=== PATIENT | male | born 1990 | race Caucasian/White ===

== ENCOUNTER 2017-06-26 16:44 | Emergency (ER) | payer OTHER ==
[~2017-06-26] VITALS: Ht 190.5 cm; Wt 226.8 kg
[2017-06-26 18:56] LABS: ABSOLUTE BASOPHIL COUNT 0 /CUMM (0.0-0.2); ABSOLUTE EOSINOPHIL COUNT 0.4 /CUMM (0.0-0.7); ABSOLUTE GRANULOCYTE CT 8.2 /CUMM (1.4-6.5); ABSOLUTE LYMPH COUNT 2.1 /CUMM (1.2-3.4); ABSOLUTE MONOCYTE COUNT 0.9 /CUMM (0.10-0.60); BASOPHIL % 0.4 % (0.0-2.0); EOSINOPHIL % 3.1 % (0-5); GRANULOCYTE % 70.8 % (42.2-75.2); HEMATOCRIT 44.6 % (42-52); MEAN CORPUSCULAR HGB 26.9 PG (27.0-31.0); MEAN CORPUSCULAR HGB CONC 33.4 G/DL (33.0-37.0); MEAN CORPUSCULAR VOLUME 80.5 FL (80.0-94.0); MEAN PLATELET VOLUME 7.7 FL (7.4-10.4); PLATELET COUNT 315 /CUMM (130-400); RBC DISTRIBUTION WIDTH 13.4 % (11.5-14.5); RED BLOOD CELL CT 5.53 /CUMM (4.70-6.10); WHITE BLOOD CELL COUNT 11.6 /CUMM (4.8-10.8)
--- NOTE | 2017-06-26 19:53 | ED GENERAL ADULT ---
History of Present Illness General Chief Complaint: Chest Pain Stated Complaint: PT IS HAVING CHEST PAIN Source: patient Exam Limitations: no limitations Vital Signs & Intake/Output Vital Signs & Intake/Output Vital Signs Date Time Temp Pulse Resp B/P B/P Pulse O2 O2 Flow FiO2 Mean Ox Delivery Rate 06/267 98.0 103 19 150/94 96 Room Air 06/26 2033 103 06/26 1902 98.2 112 18 157/93 98 Room Air 06/26 1656 97.1 112 18 175/95 98 Room Air ED Intake and Output 06/27 0000 06/26 1200 Intake Total Output Total Balance Patient 500 lb Weight Allergies Coded Allergies: NO KNOWN ALLERGIES (09/27/12) Triage Note: 26 YEAR OLD MALE STATES THAT HE HAS BEEN HAVING AN INTERMITTANT UPPER CHEST PRESSURE X 2 DAYS, PT HAS HISTORY OF HTN AND GERD. STATES THAT THIS AFTERNOON PRESSURE HAS BEEN CONSTANT, NON RADIATING. DENIES SOB. Triage Nurses Notes Reviewed? yes Onset: Abrupt Duration: hour(s): Timing: recent history HPI: 06/26/17 8:32 pm 26-year-old male presents to the emergency department with chest heaviness. The patient states that he had an episode of chest heaviness earlier in the day. He does have a history of gastroesophageal reflux. He says that this time the discomfort was different. He is concerned because he recognizes that he has a history of high blood pressure and is also significantly obese. Currently he denies any pain but said that he has a dull ache. His initial EKG is unchanged. Labs have been sent. Past History Travel History Traveled to [place] past 21 day No Medical History Any Pertinent Medical History? see below for history Cardiovascular: hypertension Gastrointestinal: GERD Hepatic: NONE Renal: NONE Musculoskeletal: NONE Psychiatric: NONE Endocrine: NONE Blood Disorders: NONE ARCHITECTURE INTERNSHIP/Reproductive: NONE Surgical History Surgical History: non-contributory Psychosocial History What is your primary language Trinidadian Tobacco Use: Never used ETOH Use: denies use Illicit Drug Use: denies illicit drug use Family History Hx Contributory? No Review of Systems Review of Systems Constitutional: Denies: fever. EENTM: Denies: visual changes. Respiratory: Denies: short of breath. Cardiovascular: Reports: chest pain. GI: Denies: abdominal pain. Genitourinary: Reports: no symptoms. Musculoskeletal: Reports: no symptoms. Skin: Reports: no symptoms. Neurological/Psychological: Reports: no symptoms. Hematologic/Endocrine: Reports: no symptoms. Immunologic/Allergic: Reports: no symptoms. Physical Exam Physical Exam General Appearance: alert, awake, anxious, moderate distress Head: atraumatic, normal appearance Eyes: Bilateral: normal appearance, PERRL, EOMI. Ears, Nose, Throat: normal pharynx, normal ENT inspection Neck: normal inspection, supple Respiratory: normal breath sounds, chest non-tender, no respiratory distress Cardiovascular: regular rate/rhythm Peripheral Pulses: 4+ radial (R), 4+ radial (L) Gastrointestinal: soft, OBESE NONTENDER Back: normal range of motion, vertebral tenderness Extremities: normal inspection, normal range of motion, pedal edema Neurologic/Psych: no motor/sensory deficits, awake, alert, oriented x 3 Skin: intact, normal color, warm/dry Core Measures ACS in differential dx? No CVA/TIA Diagnosis: No Sepsis Present: No Sepsis Focused Exam Completed? No Progress Differential Diagnoses I considered the following diagnoses in my evaluation of the patient: [Acute coronary syndrome, hypertension, aortic dissection, costochondritis, gastroesophageal reflux, valvular heart disease] Plan of Care: Orders Procedure Date/time Status TROPONIN LEVEL 06/27 2007 Complete EKG 06/27 2007 Active THYROID STIMULATING HORMONE 06/27 1819 Complete TROPONIN LEVEL 06/27 1819 Complete FREE T4 06/27 1819 Complete D-DIMER 06/27 1819 Complete COMPREHENSIVE METABOLIC PANEL 06/26 182 Complete CBC WITHOUT DIFFERENTIAL 06/27 1819 Complete EKG 06/26 1645 Active Laboratory Tests 06/26/172027: Troponin I < 0.01 06/26/17 1843: Anion Gap 17 H, Estimated GFR > 60, BUN/Creatinine Ratio 16.7, Glucose 121 H, Calcium 9.7, Total Bilirubin 0.4, AST 32, ALT 62, Alkaline Phosphatase 39, Troponin I < 0.01, Total Protein 7.9, Albumin 4.5, Globulin 3.4, Albumin/ Globulin Ratio 1.3, TSH 1.790, Free T4 1.07, D-Dimer High Sensitivty < 200, CBC w Diff NO MAN DIFF REQ, RBC 5.53, MCV 80.5, MCH 26.9 L, MCHC 33.4, RDW 13.4, MPV 7.7, Gran % 70.8, Lymphocytes % 18.3 L, Monocytes % 7.4, Eosinophils % 3.1, Basophils % 0.4, Absolute Granulocytes 8.2 H, Absolute Lymphocytes 2.1, Absolute Monocytes 0.9 H, Absolute Eosinophils 0.4, Absolute Basophils 0 Repeat EKG unchanged. Repeat troponin negative. Chest x-ray results shown below Asymptomatic in the ED Discussed the plan of care with the patient We discussed reducing salt, exercising, encouraging weight loss. He was instructed to follow-up with his doctor this week. PATIENT: TARIQ JACKSON PRESENT AGE: 26 PATIENT ACCOUNT NO: [id number] : 92 LOCATION: [facility] ORDERING PHYSICIAN: Cl SHIN SERVICE DATE: 06/26/17 EXAM TYPE: RAD - XRY-CHEST XRAY, TWO VIEWS EXAMINATION: XR CHEST CLINICAL INFORMATION: Chest pain COMPARISON: Chest x-rays of 07/19/2013, 10/07/2010. TECHNIQUE: 2 views of the chest were obtained. FINDINGS: The cardiomediastinal silhouette is within normal limits for technique. Lungs are normally and symmetrically expanded. The lungs appear clear. No pleural effusions or pneumothorax. Regional skeleton is intact. Visualized upper abdomen is unremarkable. IMPRESSION: No acute pulmonary process. DICTATED BY: Phyllis Brown MD DATE/TIME DICTATED:06/26/172101 AWS DEVELOPER:KATHY DATE/TIME TRANSCRIBED:06/26/172101 CONFIDENTIAL, DO NOT COPY WITHOUT APPROPRIATE AUTHORIZATION. <Electronically signed in Other Vendor System> SIGNED BY: Phyllis Brown MD 06/26/172108 Initial ED EKG: NSR Prior EKG: unchanged Departure Departure Disposition: HOME OR SELF CARE Condition: Stable Clinical Impression Primary Impression: Chest pain Referrals: Kelly Diaz APRN (PCP/Family) Departure Forms: Customer Survey General Discharge Information Comments 06/26/17 9:30 PM The patient symptoms resolved. Repeat EKG and troponin are negative. Chest x- ray is negative. He will follow-up with his doctor in the next 72 hours or return to the emergency department if worse. Critical Care Note Critical Care Note Critical Care Time: mins:
--- NOTE | 2017-06-26 21:09 | RADIOLOGY REPORT ---
EXAMINATION: XR CHEST CLINICAL INFORMATION: Chest pain COMPARISON: Chest x-rays of 07/19/2013, 10/07/2010. TECHNIQUE: 2 views of the chest were obtained. FINDINGS: The cardiomediastinal silhouette is within normal limits for technique. Lungs are normally and symmetrically expanded. The lungs appear clear. No pleural effusions or pneumothorax. Regional skeleton is intact. Visualized upper abdomen is unremarkable. IMPRESSION: No acute pulmonary process.
[2017-06-26 21:57] VITALS: BP 150/94
== END 2017-06-26 22:00 ==
LOC: ERH 16:44
PROVIDERS: Physician Assistant
DX: R07.89 Other chest pain (principal)
CPT/HCPCS: 71046; 93005; 93010